=== PATIENT | male | born 1970 | race Caucasian/White ===

== ENCOUNTER → 2016-07-26 | Outpatient (CLI) | payer OTHER ==
--- NOTE | 2016-07-26 23:09 | MR ---
EXAMINATION TYPE: MR lumbar spine wo con DATE OF EXAM: 07/26/2016 COMPARISON: NONE HISTORY: Pain Low back and Right Leg x4-5 years TECHNIQUE: Multiplanar, multisequence images of the lumbar spine were acquired. The lumbar vertebra have normal alignment. There is developmentally adequate spinal canal. Disc space s are fairly normal. There is no compression fracture. Lumbar nerve roots appear normal. Neural alethea flaquito are fairly well-maintained. There is no spinal stenosis. There is no paraspinal mass. Sacroiliac joints appear normal. There is a Schmorl node noted in the inferior endplate of L1 vertebra. Sacrum i s unremarkable. IMPRESSION: Negative MR scan of the lumbar spine. No evidence of lumbar disc herniation or spinal stenosis. No fr acture.
== END | disposition home or self-care (01) ==
LOC: RADMRIMAIN 16:46
PROVIDERS: ATTEND Family Medicine
DX: M54.31 Sciatica, right side (principal)
CPT/HCPCS: 72148

== ENCOUNTER → 2019-07-20 | Outpatient (CLI) | payer OTHER ==
--- NOTE | 2019-07-21 16:24 | MR ---
EXAMINATION TYPE: MR shoulder LT wo con DATE OF EXAM: 07/20/2019 COMPARISON: None HISTORY: Lt shoulder pain after hyperextension 5 mos ago TECHNIQUE: Multiplanar, multisequence imaging of the left shoulder is performed without contrast. FINDINGS: Prominent varices are seen in the axilla. There is no sizable joint effusion. Glenohumeral joint is preserved. Glenohumeral ligaments appear intact. Biceps tendon is well situated in the bicipital groove. Small amount of fluid surrounding the tendon is incidentally noted. There appears to be intrinsic signal in the intracapsular portion of the bicep s tendon compatible with tendinosis. Small split tear not excluded. There is hypertrophic change and spurring involving the AC joint with degenerative marrow changes. Th ere is impingement supraspinatus tendon and muscle. Small amount of fluid in the subacromial bursa. T here is intrasubstance signal seen within the supraspinatus tendon distally near the insertion but no diagnostic evidence of through thickness tear or retraction. Infraspinatus and subscapularis tendons appear to be intact. Along the lower margin of the glenoid and there is a small cystic structure with a septation measurin g 1 cm which could represent a para labral cyst or ganglion cyst. There suspicion for a anterior infe rior labral tear IMPRESSION: 1. Bicipital tendinosis. Split tear within the intracapsular portion of the tendon suspected. 2. Impingement secondary to AC joint arthropathy with findings suggestive of supraspinatus bursal scu ffing and tendinosis. No definite tear or evidence of retraction. 3. There is cystic change along the anterior inferior glenoid. This could represent a para labral cys t and BE an indirect sign of anterior inferior labral tear. Small (1 cm) ganglion cyst in the differe ntial diagnosis.
== END | disposition home or self-care (01) ==
LOC: RADMRIMAIN 13:32
PROVIDERS: ATTEND Family Medicine
DX: M75.22 Bicipital tendinitis, left shoulder (principal); M12.812 Other specific arthropathies, not elsewhere classified, left shoulder; M25.812 Other specified joint disorders, left shoulder; M67.412 Ganglion, left shoulder